=== PATIENT | female | born 1955 | race Hispanic/Latino ===

== ENCOUNTER → 2017-11-23 | Day surgery (SDC) | payer MEDICARE ==
[2017-11-22 15:27] LABS: BASOPHILS % 0.2 % (0.0-1.0); EOSINOPHILS % 0.4 % (0.0-6.0); HEMATOCRIT 37.8 % (34.2-44.1); HEMOGLOBIN 12.7 g/dL (12.0-16.0); LYMPHOCYTES # (AUTO) 2.7 (1.0-3.2); LYMPHOCYTES % 28.8 % (18.0-39.1); MEAN CORPUSCULAR HGB CONC 33.6 g/dL (31-35); MEAN CORPUSCULAR VOLUME 89.2 fL (81-99); MONOCYTES # (AUTO) 0.7 (0.2-0.8); MONOCYTES % 7.2 % (4.4-11.3); NEUTROPHILS # (AUTO) 5.8 (2.1-6.9); PLATELET COUNT 297 x10e3/uL (140-360); RED BLOOD COUNT 4.24 x10e6/uL (3.6-5.1)
[~2017-11-23] MED LIST: ALBUTEROL0.63 MG/3 INH; FENTANYL CITRATE/PF 100MCG/2 ML INJ ONE; LEVOTHYROXINE75 MCG PO; LYRICA25 MG PO; MELOXICAM7.5 MG PO; MIDAZOLAM HCL 2 MG/2 ML VIAL ONE; PROPOFOL IV EMULSION 10 MG/ML 50 ML VIAL ONE; PROVENTIL HFA6.7 GM INH; SYMBICORT 16010.2 GM INH; Z.0.FLEXERIL10 MG PO; Z.0.NAPROSYN500 MG; Z.0.NEXIUM40 MG PO; Z.0.NORCO 10-325 T1 PO
[2017-11-23 09:20] VITALS: BP 127/79
== END | disposition home or self-care (01) ==
LOC: OR 05:34
PROVIDERS: ATTEND Internal Medicine Gastroenterology
DX: Z12.11 Encounter for screening for malignant neoplasm of colon (principal); D12.0 Benign neoplasm of cecum; D12.3 Benign neoplasm of transverse colon; D12.4 Benign neoplasm of descending colon; K29.70 Gastritis, unspecified, without bleeding; K21.0 Gastro-esophageal reflux disease with esophagitis; K44.9 Diaphragmatic hernia without obstruction or gangrene; K57.30 Diverticulosis of large intestine without perforation or abscess without bleeding; K64.8 Other hemorrhoids; Z71.3 Dietary counseling and surveillance; E66.9 Obesity, unspecified; J44.9 Chronic obstructive pulmonary disease, unspecified; Z88.8 Allergy status to other drugs, medicaments and biological substances; Z01.810 Encounter for preprocedural cardiovascular examination; Z01.812 Encounter for preprocedural laboratory examination; Z68.30 Body mass index [BMI] 30.0-30.9, adult; Z87.891 Personal history of nicotine dependence; Z80.0 Family history of malignant neoplasm of digestive organs
CPT/HCPCS: 36415; 43239; 45385; 85025; 93005; J2250; 45378; 45384

== ENCOUNTER 2018-09-09 17:06 | Emergency (ER) | payer MEDICARE, OTHER ==
[~2018-09-09] VITALS: Ht 157.5 cm; Wt 73.9 kg
[~2018-09-09 17:06] MED LIST changes: -FENTANYL CITRATE/PF 100MCG/2 ML INJ ONE; -MIDAZOLAM HCL 2 MG/2 ML VIAL ONE; -PROPOFOL IV EMULSION 10 MG/ML 50 ML VIAL ONE
--- OUTSIDE RECORDS SUMMARY | 2018-09-09 17:09 | XMS REPORT ---
Author Author Admin, [place] Organization [facility] Address [address] [place] [address] Phone Allergies, Adverse Reactions, Alerts Allergy Name Reaction Description Start Date Severity Status Provider No Known Allergies Josiah Casarez MD Conditions or Problems Problem Name Problem Code Onset Date Status Entry Date Provider Comment Standard Description Annotate DEPRESSIVE DISORDER, MAJOR, RECURRENT EPISODE, MODERATE Active Josiah Casarez MD Major depressive disorder, recurrent episode, moderate degree GENERALIZED ANXIETY DISORDER Active Josiah Casarez MD Generalized anxiety disorder Medication List Medication Instructions Start Date Stop Date Generic Name NDC Status Provider Patient Instruction PROZAC 10 MG ORAL CAPSULE Take 3 tabs By Mouth Every Morning FLUOXETINE HCL 32217100896 Active Josiah Casarez MD Active REMERON 15 MG ORAL TABLET Take 1/2 tab By Mouth qhs MIRTAZAPINE [id number] No Longer Active Josiah Casarez MD Active Vital Signs Date Name Value Unit Range Description blood pressure, diastolic 69 mm[Hg] BP mejia blood pressure, systolic 113 mm[Hg] BP sys height E&M 61 [in_us] Bdy height pulse rate E&M 98 /min Heart rate weight E&M 139 [lb_av] Weight Measured blood pressure, diastolic 84 mm[Hg] BP mejia blood pressure, systolic 152 mm[Hg] BP sys height E&M 61 [in_us] Bdy height pulse rate E&M 87 /min Heart rate weight E&M 140.38 [lb_av] Weight Measured blood pressure, diastolic 68 mm[Hg] BP mejia blood pressure, systolic 118 mm[Hg] BP sys height E&M 61 [in_us] Bdy height pulse rate E&M 108 /min Heart rate weight E&M 150.25 [lb_av] Weight Measured Encounters Date Encounter Provider Code Facility 14:13:54 CDT Est Patient Exp Problem - 72270 Josiah Casarez MD CPT-30501 [facility] 14:25:46 CDT Est Patient Exp Problem - 57761 Josiah Casarez MD CPT-78803 [facility] Procedures Code Procedure Name Date Entry Date Standard Description CPT-44634 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
--- OUTSIDE RECORDS SUMMARY | 2018-09-09 17:09 | XMS REPORT | Continuity of Care Document ---
Author Author [facility] Address Unknown Phone Unavailable Care Team Providers Care Restaurant Managing Partner Name Role Phone [facility] Unavailable Unavailable Problems Problem Status Onset Date Classification Date Reported Comments Source GENERALIZED ANXIETY DISORDER Active 02/28/2018 Diagnosis 08/20/2018 [facility] DEPRESSIVE DISORDER, MAJOR, RECURRENT EPISODE, MODERATE Active 02/28/2018 Diagnosis 08/20/2018 [facility] Medications Medication Details Route Status Patient Instructions Ordering Provider Order Date Source PROZAC 10 MG ORAL CAPSULE Take 3 tabs By Mouth Every Morning Active Take 3 tabs By Mouth Every Morning 02/28/2018 [facility] REMERON 15 MG ORAL TABLET Take 1/2 tab By Mouth qhs Active Take 1/2 tab By Mouth qhs 02/28/2018 [facility] PROZAC 40 MG ORAL CAPSULE Take 1 tab By Mouth Every Morning Active Take 1 tab By Mouth Every Morning 02/28/2018 [facility] Allergies, Adverse Reactions, Alerts No Known Medication Allergies Immunizations No Data Provided for This Section Results No Data Provided for This Section Pathology Reports No Data Provided for This Section Diagnostic Reports No Data Provided for This Section Consultation Notes No Data Provided for This Section Discharge Summaries No Data Provided for This Section History and Physicals No Data Provided for This Section Vital Signs Vital Sign Value Date Comments Source Diastolic (mm Hg) 74 08/20/2018 [facility] Systolic (mm Hg) 118 08/20/2018 [facility] Height 61 08/20/2018 [facility] Heart Rate 89 08/20/2018 [facility] Weight 140.25 08/20/2018 [facility] Diastolic (mm Hg) 69 07/02/2018 [facility] Systolic (mm Hg) 113 07/02/2018 [facility] Height 61 07/02/2018 [facility] Heart Rate 98 07/02/2018 [facility] Weight 139 07/02/2018 [facility] Diastolic (mm Hg) 84 05/31/2018 [facility] Systolic (mm Hg) 152 05/31/2018 [facility] Height 61 05/31/2018 [facility] Heart Rate 87 05/31/2018 [facility] Weight 140.38 05/31/2018 [facility] Diastolic (mm Hg) 68 02/28/2018 [facility] Systolic (mm Hg) 118 02/28/2018 [facility] Height 61 02/28/2018 [facility] Heart Rate 108 02/28/2018 [facility] Weight 150.25 02/28/2018 [facility] Encounters Location Location Details Encounter Type Encounter Number Reason For Visit Attending Provider ADM Date DC Date Status Source [facility] Est Patient Exp Problem - 13376 [id number] Josiah Casarez MD 05/31/2018 [facility] Est Patient Exp Problem - 42650 [id number] Josiah Casarez MD 07/02/2018 [facility] Est Patient Exp Problem - 85817 [id number] Josiah Casarez MD 08/20/2018 [facility] Procedures Procedure Code Date Perfomer Comments Source Diagnostic evaluation with [facility] [address]70 [id number] 02/28/2018 Le[facility] MEDINA [facility] Assessment and Plan No Data Provided for This Section Plan of Care No Data Provided for This Section Social History No Data Provided for This Section Family History No Data Provided for This Section Advance Directives No Data Provided for This Section Functional Status No Data Provided for This Section
--- OUTSIDE RECORDS SUMMARY | 2018-09-09 17:09 | XMS REPORT ---
Author Author Admin, [place] Organization [facility] Address [address] [address] Phone Allergies, Adverse Reactions, Alerts Allergy Name [...] Instruction PROZAC 10 MG ORAL CAPSULE Take 1 tab By Mouth Every Morning FLUOXETINE HCL [id number] Active Josiah Casarez MD Active REMERON 15 MG ORAL TABLET Take 1/2 tab By Mouth qhs MIRTAZAPINE [id number] No Longer Active Josiah Casarez MD Active Vital Signs Date Name Value Unit Range Description blood pressure, diastolic 68 mm[Hg] BP mejia blood pressure, systolic 118 mm[Hg] BP sys height E&M 61 [in_us] Bdy height pulse rate E&M 108 /min Heart rate weight E&M 150.25 [lb_av] Weight Measured Procedures Code Procedure Name Date Entry Date Standard Description CPT-70019 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
--- OUTSIDE RECORDS SUMMARY | 2018-09-09 17:09 | XMS REPORT ---
Author Author Admin, [place] Organization [facility] Address [address] [facility] [address] [place] [phone] Phone Allergies, Adverse Reactions, Alerts Allergy Name Reaction Description Start Date Severity Status Provider No Known Allergies Josiah Casarez MD Conditions or Problems Problem Name Problem Code Onset Date Status Entry Date Provider Comment Standard Description Annotate DEPRESSIVE DISORDER, MAJOR, RECURRENT EPISODE, MODERATE Active Josiah Caasrez MD Major depressive disorder, recurrent episode, moderate degree GENERALIZED ANXIETY DISORDER Active Josiah Casarez MD Generalized anxiety disorder Medication List Medication Instructions Start Date Stop Date Generic Name NDC Status Provider Patient Instruction PROZAC 40 MG ORAL CAPSULE Take 1 tab By Mouth Every Morning FLUOXETINE HCL [id number] Active Josiah Casarez MD Active REMERON 15 MG ORAL TABLET Take 1/2 tab By Mouth qhs MIRTAZAPINE [id number] No Longer Active Josiah Casarez MD Active Vital Signs Date Name Value Unit Range Description blood pressure, diastolic 74 mm[Hg] BP mejia blood pressure, systolic 118 mm[Hg] BP sys height E&M 61 [in_us] Bdy height pulse rate E&M 89 /min Heart rate weight E&M 140.25 [lb_av] Weight Measured blood pressure, diastolic 69 mm[Hg] BP mejia [...] Measured Encounters Date Encounter Provider Code Facility 16:10:35 CDT Est Patient Exp Problem - 44874 Josiah Casarez MD CPT-05956 [facility] 14:13:54 CDT Est Patient Exp Problem - 86716 Josiah Casarez MD CPT-50304 [facility] 14:25:46 CDT Est Patient Exp Problem - 81789 Josiah Casarez MD CPT-39546 [facility] Procedures Code Procedure Name Date Entry Date Standard Description CPT-05979 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
[2018-09-09] MEDS ORDERED: LIDOCAINE HCL 1% LOCAL INJ 20 ML VIAL ONE (18:06)
[2018-09-09] MEDS ORDERED: LIDOCAINE HCL 1% LOCAL INJ 20 ML VIAL INJ ONE (18:15)
[2018-09-09] MEDS ORDERED: BACITRACIN ZINC 0.9GM TP ONE (19:00)
[2018-09-09] MEDS ORDERED: TETANUS/DIPHTHERIA TOX ADULT 0.5 ML SYR IM ONE (19:15)
[2018-09-09] MEDS ORDERED: ACETAMINOPHEN/CODEINE 300MG - 30MG TAB PO ONE (19:15)
--- NOTE | 2018-09-09 19:19 | Diagnostic Imaging Report ---
HAND 3+ VIEWS LEFT - 3 views HISTORY: Pain COMPARISON: None available. FINDINGS: Bones: No acute displaced fracture. Osseous alignment is within normal limits. Joints: No malalignment. Soft tissues: Soft tissue defect, swelling, and mild emphysema is seen in the palmar aspect of the lateral left hand. IMPRESSION: No acute fracture or dislocation of the left hand. No radiopaque foreign body. Signed by: Dr. Ravi Lee MD on 09/09/2018 7:16 PM
== END 2018-09-09 19:37 | disposition home or self-care (01) ==
LOC: ER 17:06
DX: S61.412A Laceration without foreign body of left hand, initial encounter (principal); J44.9 Chronic obstructive pulmonary disease, unspecified; W01.110A Fall on same level from slipping, tripping and stumbling with subsequent striking against sharp glass, initial encounter; Y92.019 Unspecified place in single-family (private) house as the place of occurrence of the external cause
CPT/HCPCS: 12002; 73130; 99284; J2001